=== PATIENT | female | born 1935 ===

== ENCOUNTER 2023-08-21 11:34 | Outpatient (NON) | payer MEDICARE, SELFPAY ==
[2023-08-21 12:17] LABS: INR 3.3; Prothrombin Time 33.5 Seconds (9.50-12.1)
== END 2023-08-21 11:35 | disposition home or self-care (01) ==
LOC: CHSLAB 11:41
DX: I48.0 Paroxysmal atrial fibrillation (principal)
CPT/HCPCS: 85610